=== PATIENT | female | born 1975 | race Caucasian/White ===

== ENCOUNTER → 2017-01-07 | Outpatient (CLI) | payer BC ==
[~2017-01-07] MED LIST: BCPILLS PO; MULT-506 PO; SYN112 PO
== END | disposition home or self-care (01) ==
LOC: C.RDSM 15:37
PROVIDERS: ATTEND Physical Medicine & Rehabilitation Sports Medicine
DX: M76.892 Other specified enthesopathies of left lower limb, excluding foot (principal); M25.551 Pain in right hip